=== PATIENT | female | born 1975 ===

== ENCOUNTER 2017-03-11 19:34 | Emergency (ER) | payer OTHER ==
--- NOTE | 2017-03-11 20:15 | ER PHYSICIAN DOCUMENTATION ---
Physician Documentation [facility] Name:Angelo Ely Age:42 yrs Sex:Female :1975 Arrival Date:03/11/2017 Time:19:34 Bed3 Private MD: Joe Geller Disposition: 03/11/17 19:59 Discharged to Home/Self Care. Impression: Intrauterine (IUP), Abdominal Cramps. - Condition is Good. - Discharge Instructions: Abdominal Pain - ABDOMINAL PAIN, Early . - Medical Reconciliation form form. - Follow up: Emergency Department; When: As needed; Reason: Worsening of condition. - Problem is new. - Symptoms have improved. HPI: 03/11 19:53 This 42 yrs old /[place] Female presents to ER via Walk In with complaints sc of Abdominal Cramping. 19:53 The patient presents to the emergency department with worried about donaldson, nausea, sc insomnia, sleeping in cold temperatures while , at altitude 24 hrs. The estimated gestational age is 16 weeks. course: care: private OB physician. Associated signs and symptoms: The patient has no apparent associated signs or symptoms. 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 None - PMHx: None; - PSHx: None; - Tetanus: < 10 years. - Ebola Screening: : Patient negative for fever greater than or equal to 101.5 degrees Fahrenheit, and additional compatible Ebola Virus Disease symptoms. Patient denies exposure to infectious person. Patient denies travel to an Ebola-affected area in the 21 days before illness onset. No symptoms or risks identified at this time. . - Immunization history: Flu Vaccine None. - Social history: Smoking status: Patient states former smoker of tobacco. Patient/guardian denies using alcohol, street drugs. ROS: 19:54 Constitutional: Negative for fever, chills, and weight loss. sc Eyes: Negative for injury, pain, redness, and discharge. ENT: Negative for injury, pain, and discharge. Neck: Negative for injury, pain, and swelling. Cardiovascular: Negative for chest pain, palpitations, and edema. Respiratory: Negative for shortness of breath, cough, wheezing, and pleuritic chest pain. Back: Negative for injury and pain. Skin: Negative for injury, rash, and discoloration. 19:54 Neuro: Negative for headache, weakness, numbness, tingling, and seizure. sc 19:54 Abdomen/GI: Positive for nausea, abdominal cramps. 19:54 : Negative for injury or acute deformity, urinary symptoms, urinary frequency. 19:54 Neuro: Positive for headache, mild since arrival at altitude. Exam: Constitutional: This is a well developed, well nourished patient who is awake, alert, and in no acute distress. Head/Face: Normocephalic, atraumatic. Eyes: Pupils equal round and reactive to light, extra-ocular motions intact. Lids and lashes normal. Conjunctiva and sclera are non-icteric and not injected. Cornea within normal limits. Periorbital areas with no swelling, redness, or edema. Cardiovascular: Regular rate and rhythm with a normal S1 and S2. No gallops, murmurs, or rubs. Normal PMI, no JVD. No pulse deficits. Respiratory: Lungs have equal breath sounds bilaterally, clear to auscultation and percussion. No rales, rhonchi or wheezes noted. No increased work of breathing, no retractions or nasal flaring. Abdomen/GI: Soft, non-tender, with normal bowel sounds. No distension or tympany. No guarding or rebound. No evidence of tenderness throughout. Back: No spinal tenderness. No costovertebral tenderness. Full range of motion. Skin: Warm, dry with normal turgor. Normal color with no rashes, no lesions, and no evidence of cellulitis. MS/ Extremity: Pulses equal, no cyanosis. Neurovascular intact. Full, normal range of motion, negative Homans's, calves equal bilaterally. 19:55 Neuro: Awake and alert, GCS 15, oriented to person, place, time, and situation. sc Cranial nerves II-XII grossly intact. Motor strength 5/5 in all extremities. Sensory grossly intact. Cerebellar exam normal. Normal gait. 19:55 : Exam negative for CVA tenderness, is absent, Gravid exam: Fundal height: consistent with gestational age, heart tones: 150 beats/min. Vital Signs: 19:41 BP 116 / 86; Pulse 94; Resp 16; Temp 98.4(O); Pulse Ox 92% on R/A; Weight 77.11 kg (R); arc Height 5 ft. 2 in. (157.48 cm) (R); Pain 6/10; 20:12 BP 127 / 62; Pulse 73; Pulse Ox 96% on R/A; Pain 4/10; mk2 19:41 Body Mass Index 31.09 (77.11 kg, 157.48 cm) arc MDM: 19:50 Patient medically screened. ok 19:56 Differential diagnosis: altitude illness, no specific cause of intermittent cramps. ok Data reviewed: vital signs, nurses notes, and as a result, I will continue to observe the patient. Dispensed Medications: No medications were administered Point of Care Testing: Urine Dip: 19:59 pH: 5.5; ; Specific [place]: 1.010; Ketones: Negative; Glucose: Negative; Protein: mk2 Negative; Leukocytes: Negative; Nitrite: Negative ; Blood: Negative; Bilirubin: Negative ; Urobilinogen: Normal Signatures: Joe Montiel MD MD sc Kruger, Meg RN RN mk2
--- NOTE | 2017-03-11 20:15 | ER NURSING DOCUMENTATION ---
Nurse's Notes [facility] Name:Angelo Ely Age:42 yrs Sex:Female :1975 Arrival Date:03/11/2017 Time:19:34 Bed3 Private MD: Diagnosis:Intrauterine (IUP);Abdominal Cramps Presentation: 03/11 19:44 Presenting complaint: Patient states: Pt states she arrived from [place] two days ago [facility] and has been camping at altitude and now has a slight headache and cramping. Pt states she is 16 weeks with her first child. Pt denies any bleeding or discharge. Transition of care: Other campsite. Notified ED Physician of Dr. Montiel notified. 19:44 Acuity: STEFANI 3 [facility] 19:44 Method Of Arrival: Walk In [facility] 19:45 Care prior to arrival: Medication(s) given: Tylenol. 2 Triage Assessment: 19:53 General: Appears in no apparent distress, Behavior is cooperative, pleasant. Pain: 2 Complains of pain in suprapubic area. Neuro: No deficits noted. Cardiovascular: Heart tones S1 S2. Respiratory: Breath sounds are clear bilaterally. GI: Parent/caregiver reports the patient having normal bowel habits. : Denies burning with urination. Derm: No deficits noted. 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 None - PMHx: None; - PSHx: None; - Tetanus: < 10 years. - Ebola Screening: : Patient negative for fever greater than or equal to 101.5 degrees Fahrenheit, and additional compatible Ebola Virus Disease symptoms. Patient denies exposure to infectious person. Patient denies travel to an Ebola-affected area in the 21 days before illness onset. No symptoms or risks identified at this time. . - Immunization history: Flu Vaccine None. - Social history: Smoking status: Patient states former smoker of tobacco. Patient/guardian denies using alcohol, street drugs. Screenin:58 Infectious Disease Risk None. Abuse screen: Denies threats or abuse. Nutritional 2 screening: No deficits noted. Assessment: 19:58 See Triage Assessment done by same RN. [facility] 20:13 GI: Abd is soft and non tender. mk2 Vital Signs: 19:41 BP 116 / 86; Pulse 94; Resp 16; Temp 98.4(O); Pulse Ox 92% on R/A; Weight 77.11 kg (R); arc Height 5 ft. 2 in. (157.48 cm) (R); Pain 6/10; 20:12 BP 127 / 62; Pulse 73; Pulse Ox 96% on R/A; Pain 4/10; mk2 19:41 Body Mass Index 31.09 (77.11 kg, 157.48 cm) arc Vitals: 20:00 Heart Tones 152. ED Course: 19:41 Patient arrived in ED. arc 19:44 Eulalia Campos, RN is Primary Nurse. mk2 19:45 Triage completed. mk2 19:50 Joe Montiel MD is Attending Physician. ga 19:55 Arm band placed on Bed in low position Call Light in Reach Gowned HOB Elevated Side mk2 rails up x1. 19:55 Warm blanket given. mk2 19:59 Urine collected. Clean catch specimen. mk2 20:13 Valuables Remains with patient. mk2 Administered Medications: No medications were administered Point of Care Testing: Urine Dip: 19:59 pH: 5.5; ; Specific [place]: 1.010; Ketones: Negative; Glucose: Negative; Protein: mk2 Negative; Leukocytes: Negative; Nitrite: Negative ; Blood: Negative; Bilirubin: Negative ; Urobilinogen: Normal Outcome: 19:59 Discharge ordered by . ga 20:12 Discharged to home ambulatory. mk2 20:12 Condition: improved 20:14 Discharge instructions given to patient, Instructed on discharge instructions, follow mk2 up and referral plans. Altitude sickness 20:14 Discharge Assessment: Patient awake, alert and oriented x 3. No cognitive and/or mk2 functional deficits noted. Patient verbalized understanding of disposition instructions. 20:14 Patient left the ED. mk2 Signatures: Mayi Shah RN RN Joe Montiel MD MD ga Eulalia Campos RN RN 2 Zoe Montiel, Reg Reg arc
== END 2017-03-11 20:15 | disposition home or self-care (01) ==
LOC: ER 19:34
DX: O99.89 Other specified diseases and conditions complicating pregnancy, childbirth and the puerperium (principal); R51 Headache; R11.0 Nausea; R10.9 Unspecified abdominal pain
CPT/HCPCS: 99283